=== PATIENT | female | born 1955 | race African-American/Black ===

== ENCOUNTER 2021-05-02 20:08 | Inpatient (IN) | payer OTHER ==
[2021-05-02 21:27] LABS: BASO % 0.2 % (0-2.0); EOS % 0.1 % (0-4.5); HEMATOCRIT 41.8 % (32.4-45.2); HEMOGLOBIN 13.9 GM/dL (10.7-15.3); LYMPH % 12.8 % (8-40); MCH 27.4 pg (25.7-33.7); MCHC 33.3 g/dl (32.0-36.0); MEAN CELL VOLUME 82.3 fl (80-96); MEAN PLT VOLUME 8.7 fl (7.5-11.1); MONO % 6.4 % (3.8-10.2); NEUT % 80.5 % (42.8-82.8); PLATELET COUNT 198 10^3/uL (134-434); RBC 5.08 M/mm3 (3.60-5.2); RDW 14.2 % (11.6-15.6); WHITE BLOOD COUNT 10.4 K/mm3 (4.0-10.0)
[2021-05-02 21:28] LABS: VENOUS BASE EXCESS 2.2 mmol/L (-2-2); VENOUS O2 SATURATION 45.6 % (70-80); VENOUS PCO2 50.6 mmHg (38-52); VENOUS PH 7.369 (7.310-7.410)
[2021-05-02 21:31] LABS: EPI CELLS 6 /uL (0-25.1); HYALINE CASTS 1 /uL (0-3.1); URINE APPEARANCE CLOUDY; URINE BACTERIA 6169 /uL (0-1359); URINE BILIRUBIN NEGATIVE (NEGATIVE); URINE COLOR YELLOW; URINE GLUCOSE (UA) 3+ (NEGATIVE); URINE KETONE NEGATIVE (NEGATIVE); URINE LEUK ESTERASE 1+ (NEGATIVE); URINE NITRITE POSITIVE (NEGATIVE); URINE PROTEIN TRACE (NEGATIVE); URINE UROBILINOGEN 0.2 mg/dL (0.2-1.0); URINE WBC 644 /uL (0-25.8)
[2021-05-02 21:34] LABS: INR 0.9 (0.83-1.09); PROTHROMBIN TIME (PATIENT) 11.1 SEC (9.7-13.0)
[2021-05-02 21:36] LABS: ACTIVATED PTT 30.4 SECONDS (25.2-36.5)
[2021-05-02 21:38] LABS: OPIATES, URI NEGATIVE (NEGATIVE); PHENCYCLIDINE,URINE NEGATIVE (NEGATIVE); URINE BARBITURATES NEGATIVE (NEGATIVE)
[2021-05-02 21:39] LABS: COCAINE, UR NEGATIVE (NEGATIVE); METHADONE, UR NEGATIVE (NEGATIVE); URINE BENZODIAZEPINES NEGATIVE (NEGATIVE)
[2021-05-02 21:44] LABS: CHLORIDE 104 mmol/L (98-107); SODIUM 140 mmol/L (136-145); URINE AMPHETAMINES NEGATIVE (NEGATIVE)
[2021-05-02 21:45] LABS: ALBUMIN 3.9 g/dl (3.4-5.0); CALCIUM 11.7 mg/dL (8.5-10.1)
[2021-05-02 21:47] LABS: ANION GAP 8 MMOL/L (8-16); BLOOD UREA NITROGEN 35.2 mg/dL (7-18); CO2 28 mmol/L (21-32); LIPASE 148 U/L (73-393); MAGNESIUM 1.6 mg/dL (1.8-2.4)
[2021-05-02 21:49] LABS: CREATININE 1.4 mg/dL (0.55-1.3); SGOT/AST 12 U/L (15-37); SGPT/ALT 22 U/L (13-61)
[2021-05-02 21:50] LABS: BILIRUBIN,TOTAL 0.3 mg/dL (0.2-1); TOT PROT 8.1 g/dl (6.4-8.2)
[2021-05-02 21:52] LABS: ALK PHOS 103 U/L (45-117)
[2021-05-02 21:54] LABS: URINE RBC 41.3 /uL (0-23.9)
[2021-05-02 21:55] LABS: YEAST MODERATE (NEGATIVE)
[2021-05-02] MEDS ORDERED: PIPERACILLIN/TAZOB 2.25 GM 2.25 GM in DEXTROSE 5%-WATER - 50 ML IVPB ONE (21:58)
[2021-05-02] MEDS ORDERED: MAGNESIUM SULF 50% (8.12 MEQ/2 ML-1 GM VIAL) IVPB ONE (21:59)
[2021-05-02] MEDS ORDERED: PIPERACILLIN/TAZOB 2.25 GM 2.25 GM/50 ML BAG IVPB ONE (22:08)
[2021-05-02] MEDS ORDERED: MAGNESIUM SULFATE IN WATER 2 GM/50 ML IVPB IVPB ONE (22:08)
[2021-05-02 22:10] LABS: GLUCOSE,RANDOM 422 mg/dL (74-106)
[2021-05-02] MEDS ORDERED: INSULIN (NOVOLOG) ASPART 100 UNITS/ML 10ML VIAL SQ ONE (22:26)
[2021-05-02] MEDS ORDERED: ASPIRIN 300 MG SUPP.RECT PR ONE (22:52)
[2021-05-03] MEDS ORDERED: INSULIN (NOVOLOG) ASPART 100 UNITS/ML 10ML VIAL SQ ONE (01:30)
[2021-05-03 09:46] LABS: BASO % 0.5 % (0-2.0); EOS % 0.2 % (0-4.5); HEMATOCRIT 44.4 % (32.4-45.2); HEMOGLOBIN 14.3 GM/dL (10.7-15.3); LYMPH % 13.4 % (8-40); MCHC 32.2 g/dl (32.0-36.0); MEAN CELL VOLUME 83.8 fl (80-96); MEAN PLT VOLUME 8.8 fl (7.5-11.1); MONO % 7.1 % (3.8-10.2); NEUT % 78.8 % (42.8-82.8); PLATELET COUNT 196 10^3/uL (134-434); RDW 14.4 % (11.6-15.6); WHITE BLOOD COUNT 11.7 K/mm3 (4.0-10.0)
[2021-05-03] MEDS ORDERED: levETIRAcetam 500 MG/5 ML INJECTION VIAL IVPB SCH (10:00)
[2021-05-03] MEDS ORDERED: levETIRAcetam 500 MG/5 ML INJECTION VIAL IVPB ONE ×2 (10:04→21:22)
[2021-05-03] MEDS ORDERED: CEFTRIAXONE 1 GM in DEXTROSE 5%-WATER - 50 ML IVPB SCH ×3 (10:45→11:00)
[2021-05-03] MEDS ORDERED: LORazepam 2 MG/ML SDV VIAL IVPUSH ONE (11:07)
[2021-05-03] MEDS ORDERED: hydrALAZINE HCL 20 MG/ML VIAL IVPUSH PRN (11:07)
[2021-05-03] MEDS ORDERED: CEFTRIAXONE 1 GM/50 ML BAG ONE (11:51)
[2021-05-03] MEDS ORDERED: hydrALAZINE HCL 20 MG/ML VIAL ONE ×2 (11:56→21:23)
[2021-05-03] MEDS ORDERED: LORazepam 2 MG/ML SDV VIAL ONE (14:25)
[2021-05-03] MEDS ORDERED: amLODIPine BESYLATE 10 MG TABLET (FP) PO SCH ×2 (14:30→18:00)
[2021-05-03] MEDS ORDERED: amLODIPine BESYLATE 5 MG TABLET (FP) ONE (17:55)
[2021-05-03] MEDS: amLODIPine BESYLATE 5 MG TABLET (FP) PO SCH (18:06)
[2021-05-03] MEDS ORDERED: ATORVASTATIN CA 80 MG TABLET (FP) ONE (21:23)
[2021-05-03] MEDS ORDERED: cloNIDine HCL 0.1 MG TABLET ONE (21:23)
[2021-05-03] MEDS: SODIUM CHLORIDE 0.45% 1,000 ML IV SCH (21:29)
[2021-05-03] MEDS: levETIRAcetam 500 MG/5 ML INJECTION VIAL IVPB SCH (21:29)
[2021-05-03] MEDS: cloNIDine HCL 0.1 MG TABLET PO SCH (21:29)
[2021-05-03] MEDS: hydrALAZINE HCL 20 MG/ML VIAL IVPUSH PRN (21:30)
[2021-05-03] MEDS: ATORVASTATIN CA 80 MG TABLET (FP) PO SCH (21:30)
[2021-05-03] MEDS ORDERED: cloNIDine HCL 0.1 MG TABLET PO SCH ×2 (22:00)
[2021-05-03] MEDS ORDERED: ATORVASTATIN CA 80 MG TABLET (FP) PO SCH (22:00)
[2021-05-04] MEDS ORDERED: hydrALAZINE HCL 20 MG/ML VIAL ONE (04:32)
[2021-05-04] MEDS: hydrALAZINE HCL 20 MG/ML VIAL IVPUSH PRN (04:33)
[2021-05-04] MEDS ORDERED: ASPIRIN 300 MG SUPP.RECT RC ONE (09:35)
[2021-05-04] MEDS ORDERED: cloNIDine HCL 0.1 MG TABLET ONE (09:35)
[2021-05-04] MEDS ORDERED: levETIRAcetam 500 MG/5 ML INJECTION VIAL IVPB ONE (09:35)
[2021-05-04] MEDS ORDERED: ASPIRIN 300 MG SUPP.RECT RC SCH ×2 (10:00)
[2021-05-04] MEDS ORDERED: amLODIPine BESYLATE 10 MG TABLET (FP) PO SCH (10:00)
[2021-05-04] MEDS: amLODIPine BESYLATE 5 MG TABLET (FP) PO SCH (10:59)
[2021-05-04] MEDS: CEFTRIAXONE 1 GM in DEXTROSE 5%-WATER - 50 ML IVPB SCH (10:59)
[2021-05-04] MEDS: cloNIDine HCL 0.1 MG TABLET PO SCH ×3 (10:59→22:31)
[2021-05-04] MEDS: levETIRAcetam 500 MG/5 ML INJECTION VIAL IVPB SCH ×2 (10:59→22:21)
[2021-05-04] MEDS ORDERED: amLODIPine BESYLATE 2.5 MG TABLET (FP) ONE ×2 (11:24)
[2021-05-04] MEDS ORDERED: CEFTRIAXONE 1 GM/50 ML BAG ONE (11:44)
[2021-05-04] MEDS ORDERED: ASPIRIN/DIPYRIDAMOLE 25 MG/200 MG CAPSULE ONE (15:01)
[2021-05-04] MEDS: ASPIRIN/DIPYRIDAMOLE 25 MG/200 MG CAPSULE PO SCH ×2 (15:04→22:20)
[2021-05-04] MEDS: SODIUM CHLORIDE 0.45% 1,000 ML IV SCH (21:17)
[2021-05-04] MEDS: ATORVASTATIN CA 80 MG TABLET (FP) PO SCH ×2 (22:21→22:31)
[2021-05-05 04:06] VITALS: BMI 28.3
[2021-05-05] MEDS: INSULIN SLIDING SCALE (NOVOLOG) 1 VIAL SQ SCH ×3 (06:04→19:48)
[2021-05-05] MEDS ORDERED: cefTRIAXone SODIUM 1 GM VIAL ONE (09:00)
[2021-05-05] MEDS ORDERED: PT OWN MED DRAWER 7, Y5N ONE ×4 (09:00→22:18)
[2021-05-05] MEDS ORDERED: DEXTROSE 5%-WATER - 50 ML IVPB ONE (09:01)
[2021-05-05] MEDS: CEFTRIAXONE 1 GM in DEXTROSE 5%-WATER - 50 ML IVPB SCH (09:03)
[2021-05-05] MEDS: levETIRAcetam 500 MG/5 ML INJECTION VIAL IVPB SCH (09:04)
[2021-05-05] MEDS: amLODIPine BESYLATE 5 MG TABLET (FP) PO SCH (09:04)
[2021-05-05] MEDS: cloNIDine HCL 0.1 MG TABLET PO SCH ×2 (09:05→22:16)
[2021-05-05] MEDS: ASPIRIN/DIPYRIDAMOLE 25 MG/200 MG CAPSULE PO SCH (09:08)
[2021-05-05] MEDS: metoPROLOL SUCCINATE 25 MG TAB.SR.24H (FP) PO SCH (10:14)
[2021-05-05] MEDS ORDERED: SODIUM CHLORIDE 0.45% 1,000 ML IV SCH (13:44)
[2021-05-05] MEDS ORDERED: ACETAMINOPHEN 325 MG TABLET (FP) PO PRN (13:56)
[2021-05-05] MEDS: DIPYRIDAMOLE 50 MG TABLET PO SCH ×3 (14:20→22:31)
[2021-05-05] MEDS: ASPIRIN 81 MG CHEWABLE TABLETS PO SCH (14:34)
[2021-05-05] MEDS ORDERED: ASPIRIN/DIPYRIDAMOLE 25 MG/200 MG CAPSULE PO SCH (22:00)
[2021-05-05] MEDS ORDERED: INSULIN (LEVEMIR) 100 UNITS/ML UNITS SQ SCH (22:00)
[2021-05-05] MEDS: ATORVASTATIN CA 80 MG TABLET (FP) PO SCH (22:16)
[2021-05-05] MEDS: levETIRAcetam 500 MG TABLET (FP) PO SCH (22:31)
[2021-05-06] MEDS: INSULIN SLIDING SCALE (NOVOLOG) 1 VIAL SQ SCH ×3 (06:02→16:51)
[2021-05-06] MEDS ORDERED: cefTRIAXone SODIUM 1 GM VIAL ONE (08:37)
[2021-05-06] MEDS ORDERED: DEXTROSE 5%-WATER - 50 ML IVPB ONE (08:37)
[2021-05-06] MEDS ORDERED: PT OWN MED DRAWER 7, Y5N ONE ×4 (08:37→17:10)
[2021-05-06] MEDS: metoPROLOL SUCCINATE 25 MG TAB.SR.24H (FP) PO SCH (09:02)
[2021-05-06] MEDS: DIPYRIDAMOLE 50 MG TABLET PO SCH ×4 (09:02→21:49)
[2021-05-06] MEDS: ASPIRIN 81 MG CHEWABLE TABLETS PO SCH (09:02)
[2021-05-06] MEDS: levETIRAcetam 500 MG TABLET (FP) PO SCH ×2 (09:02→21:48)
[2021-05-06] MEDS: amLODIPine BESYLATE 5 MG TABLET (FP) PO SCH (09:02)
[2021-05-06] MEDS: cloNIDine HCL 0.1 MG TABLET PO SCH ×2 (09:02→21:48)
[2021-05-06] MEDS: ENOXAPARIN NA (PORCINE) 40 MG/0.4 ML DISP.SYRIN SQ SCH (09:03)
[2021-05-06] MEDS: CEFTRIAXONE 1 GM in DEXTROSE 5%-WATER - 50 ML IVPB SCH (09:03)
[2021-05-06] MEDS ORDERED: INSULIN (LEVEMIR) 100 UNITS/ML UNITS SQ SCH (10:46)
[2021-05-06] MEDS: ATORVASTATIN CA 80 MG TABLET (FP) PO SCH (21:49)
[2021-05-07] MEDS: INSULIN SLIDING SCALE (NOVOLOG) 1 VIAL SQ SCH ×3 (06:00→17:36)
[2021-05-07 06:57] LABS: BASO % 0.4 % (0-2.0); EOS % 0.1 % (0-4.5); HEMOGLOBIN 13.8 GM/dL (10.7-15.3); LYMPH % 14.2 % (8-40); MCH 27.4 pg (25.7-33.7); MCHC 32.1 g/dl (32.0-36.0); MEAN CELL VOLUME 85.5 fl (80-96); MEAN PLT VOLUME 8.9 fl (7.5-11.1); MONO % 6.7 % (3.8-10.2); NEUT % 78.6 % (42.8-82.8); PLATELET COUNT 150 10^3/uL (134-434); RBC 5.02 M/mm3 (3.60-5.2); RDW 14.7 % (11.6-15.6); WHITE BLOOD COUNT 10.6 K/mm3 (4.0-10.0)
[2021-05-07 07:09] LABS: CALCIUM 11.9 mg/dL (8.5-10.1)
[2021-05-07 07:10] LABS: ALBUMIN 3.2 g/dl (3.4-5.0); BLOOD UREA NITROGEN 39.9 mg/dL (7-18)
[2021-05-07 07:12] LABS: BILIRUBIN,TOTAL 0.3 mg/dL (0.2-1); TOT PROT 7.1 g/dl (6.4-8.2)
[2021-05-07 07:13] LABS: CREATININE 1.1 mg/dL (0.55-1.3)
[2021-05-07] MEDS ORDERED: INSULIN (LEVEMIR) 100 UNITS/ML UNITS SQ ONE (08:04)
[2021-05-07] MEDS ORDERED: INSULIN SLIDING SCALE (NOVOLOG) 1 VIAL SQ ONE (08:05)
[2021-05-07] MEDS ORDERED: cefTRIAXone SODIUM 1 GM VIAL ONE (09:11)
[2021-05-07] MEDS ORDERED: DEXTROSE 5%-WATER - 50 ML IVPB ONE (09:11)
[2021-05-07] MEDS ORDERED: PT OWN MED DRAWER 7, Y5N ONE ×3 (09:11→17:20)
[2021-05-07] MEDS: ENOXAPARIN NA (PORCINE) 40 MG/0.4 ML DISP.SYRIN SQ SCH (09:33)
[2021-05-07] MEDS: levETIRAcetam 500 MG TABLET (FP) PO SCH ×2 (09:33→21:06)
[2021-05-07] MEDS: ASPIRIN 81 MG CHEWABLE TABLETS PO SCH (09:33)
[2021-05-07] MEDS: CEFTRIAXONE 1 GM in DEXTROSE 5%-WATER - 50 ML IVPB SCH (09:33)
[2021-05-07] MEDS: cloNIDine HCL 0.1 MG TABLET PO SCH ×2 (09:34→21:05)
[2021-05-07] MEDS: amLODIPine BESYLATE 5 MG TABLET (FP) PO SCH (09:34)
[2021-05-07] MEDS: metoPROLOL SUCCINATE 25 MG TAB.SR.24H (FP) PO SCH ×2 (09:34→10:00)
[2021-05-07] MEDS: DIPYRIDAMOLE 50 MG TABLET PO SCH ×4 (09:38→21:15)
[2021-05-07] MEDS ORDERED: PNEUMOC 13-VAL CONJ-DIP CRM/PF 0.5 ML DISP.SYRIN IM ONE (12:24)
[2021-05-07] MEDS: SODIUM CHLORIDE 0.45% 1,000 ML IV SCH (16:08)
[2021-05-07] MEDS: ATORVASTATIN CA 80 MG TABLET (FP) PO SCH (21:06)
[2021-05-07] MEDS: INSULIN (LEVEMIR) 100 UNITS/ML UNITS SQ SCH (21:15)
[2021-05-08] MEDS: INSULIN SLIDING SCALE (NOVOLOG) 1 VIAL SQ SCH ×3 (06:06→16:52)
[2021-05-08] MEDS ORDERED: INSULIN SLIDING SCALE (NOVOLOG) 1 VIAL SQ ONE (06:52)
[2021-05-08] MEDS ORDERED: INSULIN (LEVEMIR) 100 UNITS/ML UNITS SQ ONE (06:52)
[2021-05-08] MEDS: SODIUM CHLORIDE 0.45% 1,000 ML IV SCH ×3 (07:44→14:43)
[2021-05-08] MEDS ORDERED: cefTRIAXone SODIUM 1 GM VIAL ONE (08:47)
[2021-05-08] MEDS ORDERED: DEXTROSE 5%-WATER - 50 ML IVPB ONE (08:47)
[2021-05-08] MEDS: levETIRAcetam 500 MG TABLET (FP) PO SCH ×2 (09:29→22:00)
[2021-05-08] MEDS: amLODIPine BESYLATE 5 MG TABLET (FP) PO SCH (09:29)
[2021-05-08] MEDS: ASPIRIN 81 MG CHEWABLE TABLETS PO SCH (09:29)
[2021-05-08] MEDS: cloNIDine HCL 0.1 MG TABLET PO SCH ×2 (09:29→22:01)
[2021-05-08] MEDS: CEFTRIAXONE 1 GM in DEXTROSE 5%-WATER - 50 ML IVPB SCH (09:30)
[2021-05-08] MEDS: ENOXAPARIN NA (PORCINE) 40 MG/0.4 ML DISP.SYRIN SQ SCH (09:30)
[2021-05-08] MEDS: DIPYRIDAMOLE 50 MG TABLET PO SCH ×4 (09:31→22:01)
[2021-05-08 12:07] LABS: BASO % 0.5 % (0-2.0); EOS % 0.5 % (0-4.5); HEMATOCRIT 41.4 % (32.4-45.2); HEMOGLOBIN 13.4 GM/dL (10.7-15.3); LYMPH % 11.5 % (8-40); MCH 27.3 pg (25.7-33.7); MCHC 32.3 g/dl (32.0-36.0); MEAN CELL VOLUME 84.4 fl (80-96); MONO % 4.9 % (3.8-10.2); NEUT % 82.6 % (42.8-82.8); PLATELET COUNT 146 10^3/uL (134-434); RDW 14.6 % (11.6-15.6); WHITE BLOOD COUNT 10.2 K/mm3 (4.0-10.0)
[2021-05-08 12:26] LABS: CALCIUM 11.6 mg/dL (8.5-10.1)
[2021-05-08 12:27] LABS: BLOOD UREA NITROGEN 34.6 mg/dL (7-18)
[2021-05-08 12:31] LABS: BILIRUBIN,TOTAL 0.3 mg/dL (0.2-1)
[2021-05-08] MEDS ORDERED: PT OWN MED DRAWER 7, Y5N ONE ×2 (12:59→22:00)
[2021-05-08] MEDS: ATORVASTATIN CA 80 MG TABLET (FP) PO SCH (22:00)
[2021-05-08] MEDS: INSULIN (LEVEMIR) 100 UNITS/ML UNITS SQ SCH (22:27)
[2021-05-09] MEDS: SODIUM CHLORIDE 0.45% 1,000 ML IV SCH (03:16)
[2021-05-09] MEDS: INSULIN SLIDING SCALE (NOVOLOG) 1 VIAL SQ SCH ×3 (06:15→17:29)
[2021-05-09] MEDS ORDERED: PT OWN MED DRAWER 7, Y5N ONE (09:42)
[2021-05-09] MEDS ORDERED: DEXTROSE 5%-WATER - 50 ML IVPB ONE (09:42)
[2021-05-09] MEDS ORDERED: cefTRIAXone SODIUM 1 GM VIAL ONE (09:42)
[2021-05-09] MEDS: cloNIDine HCL 0.1 MG TABLET PO SCH ×2 (09:51→21:32)
[2021-05-09] MEDS: CEFTRIAXONE 1 GM in DEXTROSE 5%-WATER - 50 ML IVPB SCH (09:51)
[2021-05-09] MEDS: ENOXAPARIN NA (PORCINE) 40 MG/0.4 ML DISP.SYRIN SQ SCH (09:51)
[2021-05-09] MEDS: amLODIPine BESYLATE 5 MG TABLET (FP) PO SCH (09:51)
[2021-05-09] MEDS: levETIRAcetam 500 MG TABLET (FP) PO SCH ×2 (09:52→21:32)
[2021-05-09] MEDS: ASPIRIN 81 MG CHEWABLE TABLETS PO SCH (09:52)
[2021-05-09] MEDS: DIPYRIDAMOLE 50 MG TABLET PO SCH ×4 (09:52→21:32)
[2021-05-09] MEDS: POLYETHYLENE GLYCOL (HEALTHYLAX) 3350 17 GM PACKET PO SCH (21:32)
[2021-05-09] MEDS: ATORVASTATIN CA 80 MG TABLET (FP) PO SCH (21:32)
[2021-05-09] MEDS: INSULIN (LEVEMIR) 100 UNITS/ML UNITS SQ SCH (21:34)
[2021-05-10] MEDS: INSULIN SLIDING SCALE (NOVOLOG) 1 VIAL SQ SCH ×3 (06:11→17:13)
[2021-05-10] MEDS: levETIRAcetam 500 MG TABLET (FP) PO SCH ×2 (10:15→21:46)
[2021-05-10] MEDS: cloNIDine HCL 0.1 MG TABLET PO SCH ×2 (10:15→21:46)
[2021-05-10] MEDS: ENOXAPARIN NA (PORCINE) 40 MG/0.4 ML DISP.SYRIN SQ SCH (10:15)
[2021-05-10] MEDS: amLODIPine BESYLATE 5 MG TABLET (FP) PO SCH (10:15)
[2021-05-10] MEDS: POLYETHYLENE GLYCOL (HEALTHYLAX) 3350 17 GM PACKET PO SCH ×2 (10:15→21:46)
[2021-05-10] MEDS: ASPIRIN 81 MG CHEWABLE TABLETS PO SCH (10:15)
[2021-05-10] MEDS: DIPYRIDAMOLE 50 MG TABLET PO SCH ×4 (10:16→21:47)
[2021-05-10] MEDS ORDERED: INSULIN SLIDING SCALE (NOVOLOG) 1 VIAL SQ ONE (11:57)
[2021-05-10] MEDS: INSULIN (LEVEMIR) 100 UNITS/ML UNITS SQ SCH (21:46)
[2021-05-10] MEDS: ATORVASTATIN CA 80 MG TABLET (FP) PO SCH (21:46)
[2021-05-10 21:58] VITALS: BP 142/64; PULSE 66; TEMP 97.8
== END 2021-05-10 22:50 | DRG 45 ==
LOC: JER 20:08 → JERBED 23:27 → J4S 05-04 20:56
PROVIDERS: ADMIT Internal Medicine; ATTEND Internal Medicine
DX: I63.9 Cerebral infarction, unspecified (principal); R29.720 NIHSS score 20; I10 Essential (primary) hypertension; G93.41 Metabolic encephalopathy; F20.9 Schizophrenia, unspecified; E78.5 Hyperlipidemia, unspecified; G40.909 Epilepsy, unspecified, not intractable, without status epilepticus; I47.1 Supraventricular tachycardia; E11.65 Type 2 diabetes mellitus with hyperglycemia; G20 Parkinson's disease; N39.0 Urinary tract infection, site not specified; B96.20 Unspecified Escherichia coli [E. coli] as the cause of diseases classified elsewhere; F17.210 Nicotine dependence, cigarettes, uncomplicated; I69.920 Aphasia following unspecified cerebrovascular disease; E83.42 Hypomagnesemia; R00.1 Bradycardia, unspecified; W18.39XA Other fall on same level, initial encounter; Y93.89 Activity, other specified; Y92.098 Other place in other non-institutional residence as the place of occurrence of the external cause
CPT/HCPCS: 36415; 70450-TC; 70551-TC; 71045-TC-FY; 72125-TC; 74230-TC-FY; 80053; 80177; 80307; 81003; 82010; 82140; 82330; 82550; 82803; 82962; 83036; 83605; 83690; 83735; 83970; 84443; 84484; 85025; 85610; 85730; 86850; 86900; 86901; 87040; 87086; 87186; 90670; 92611-GN; 93005; 93010; 93306-TC; 93880-TC; 97116-GP; 97162-GP; 99285-25; C9803; J0735; U0003; U0005

== ENCOUNTER 2021-05-16 16:00 | Inpatient (IN) | payer OTHER ==
[2021-05-16] MEDS ORDERED: SODIUM CHLORIDE 0.9% 500 ML INFUS.BAG IV ONE (17:48)
[2021-05-16] MEDS ORDERED: VANCOMYCIN 1 GM in D5W (PRE-DOCKED) 1,000 MG/250 ML IVPB ONE (17:53)
[2021-05-16] MEDS ORDERED: PIPERACILLIN/TAZOB 3.375 GM 3.375 GM in DEXTROSE 5%-WATER - 50 ML IVPB ONE (17:53)
[2021-05-16] MEDS ORDERED: ACETAMINOPHEN 1000 MG/100 ML VIAL (NON FORMULARY) IVPB ONE (17:54)
[2021-05-16] MEDS ORDERED: VANCOMYCIN 1 GRAM (PRE-DOCKED) 1,000 MG/250 ML BAG IVPB ONE (18:00)
[2021-05-16] MEDS ORDERED: ACETAMINOPHEN INJECTION 100 ML IVPB ONE (18:00)
[2021-05-16 18:02] LABS: EPI CELLS 4 /uL (0-25.1); HYALINE CASTS 0 /uL (0-3.1); URINE APPEARANCE TURBID; URINE BILIRUBIN NEGATIVE (NEGATIVE); URINE COLOR YELLOW; URINE GLUCOSE (UA) 3+ (NEGATIVE); URINE KETONE TRACE (NEGATIVE); URINE LEUK ESTERASE 2+ (NEGATIVE); URINE NITRITE POSITIVE (NEGATIVE); URINE PROTEIN TRACE (NEGATIVE); URINE UROBILINOGEN 0.2 mg/dL (0.2-1.0); URINE WBC 2599 /uL (0-25.8)
[2021-05-16 18:06] LABS: VENOUS BASE EXCESS -6.9 mmol/L (-2-2); VENOUS O2 SATURATION 56.7 % (70-80); VENOUS PCO2 63.3 mmHg (38-52)
[2021-05-16 18:07] LABS: VENOUS PH 7.182 (7.310-7.410)
[2021-05-16 18:15] LABS: INR 1.14 (0.83-1.09)
[2021-05-16 18:18] LABS: ACTIVATED PTT 34.9 SECONDS (25.2-36.5)
[2021-05-16 18:26] LABS: CHLORIDE 134 mmol/L (98-107)
[2021-05-16 18:29] LABS: CALCIUM 12.6 mg/dL (8.5-10.1); CO2 23 mmol/L (21-32); MAGNESIUM 2.6 mg/dL (1.8-2.4)
[2021-05-16 18:32] LABS: SGOT/AST 21 U/L (15-37); SGPT/ALT 65 U/L (13-61)
[2021-05-16 18:34] LABS: BILIRUBIN,TOTAL 0.4 mg/dL (0.2-1); TOT PROT 8.5 g/dl (6.4-8.2)
[2021-05-16 18:38] LABS: ALBUMIN 3.6 g/dl (3.4-5.0); ALK PHOS 139 U/L (45-117); ANION GAP 10 MMOL/L (8-16); BLOOD UREA NITROGEN 93.5 mg/dL (7-18); GLUCOSE,RANDOM 817 mg/dL (74-106); LACTIC ACID 3.1 mmol/L (0.4-2.0); SODIUM 167 mmol/L (136-145)
[2021-05-16 19:17] LABS: BASO % 0.2 % (0-2.0); EOS % 0.1 % (0-4.5); HEMATOCRIT 54.3 % (32.4-45.2); HEMOGLOBIN 16.2 GM/dL (10.7-15.3); LYMPH % 8.9 % (8-40); MCH 26.9 pg (25.7-33.7); MCHC 29.8 g/dl (32.0-36.0); MEAN CELL VOLUME 90.3 fl (80-96); MEAN PLT VOLUME 10.2 fl (7.5-11.1); MONO % 4.2 % (3.8-10.2); NEUT % 86.6 % (42.8-82.8); PLATELET COUNT 109 10^3/uL (134-434); RBC 6.01 M/mm3 (3.60-5.2); RDW 16.4 % (11.6-15.6); WHITE BLOOD COUNT 16.8 K/mm3 (4.0-10.0)
[2021-05-16] MEDS ORDERED: SODIUM CHLORIDE 0.9% 1000 ML INFUS.BAG IV ONE (19:27)
[2021-05-16 20:43] LABS: ARTERIAL BLD GAS O2 SATURATION 95.3 mmHg (95-98); ARTERIAL BLOOD GAS BASE EXCESS -4.8 mmol/L (-2-2); ARTERIAL BLOOD GAS PO2 86.4 mmHg (80-100); ARTERIAL BLOOD GAS pH 7.278 (7.350-7.450)
[2021-05-16 21:03] LABS: CHLORIDE 139 mmol/L (98-107)
[2021-05-16 21:06] LABS: CO2 23 mmol/L (21-32)
[2021-05-16] MEDS ORDERED: INSULIN REGULAR HUMAN 100 UNITS/ML *VIAL SQ ONE (21:06)
[2021-05-16 21:10] LABS: CREATININE 2.8 mg/dL (0.55-1.3)
[2021-05-16 21:13] LABS: ANION GAP 7 MMOL/L (8-16); CALCIUM 10.7 mg/dL (8.5-10.1); GLUCOSE,RANDOM 877 mg/dL (74-106); SODIUM 169 mmol/L (136-145)
[2021-05-16] MEDS ORDERED: SODIUM CHLORIDE 0.45%/POT 20 MEQ/1,000 ML INFUS.BAG IV SCH (21:30)
[2021-05-16] MEDS ORDERED: INSULIN REGULAR 100 UNITS in SODIUM CHLORIDE 99 ML IVPB SCH ×2 (21:30→22:23)
[2021-05-16] MEDS ORDERED: ACETAMINOPHEN 325 MG TABLET (FP) PO PRN (21:45)
[2021-05-16 21:56] LABS: URINE BACTERIA 113.6 /uL (0-1359); URINE RBC 0 /uL (0-23.9)
[2021-05-16 21:57] LABS: YEAST MODERATE (NEGATIVE)
[2021-05-16] MEDS ORDERED: levETIRAcetam 500 MG TABLET (FP) PO SCH (22:00)
[2021-05-16 22:03] LABS: PHOSPHOROUS 4.8 mg/dL (2.5-4.9)
[2021-05-16] MEDS ORDERED: INSULIN REGULAR HUMAN 100 UNITS/ML *VIAL IVPUSH ONE (22:31)
[2021-05-16] MEDS: CHLORHEXIDINE GLUCONATE 4% CLEANSER FOR DECOLONIZATION TP SCH (22:35)
[2021-05-16] MEDS: ASPIRIN/DIPYRIDAMOLE 25 MG/200 MG CAPSULE PO SCH (22:37)
[2021-05-16] MEDS: BACITRACIN 15 GM TUBE TOPICAL OINTMENT TP SCH (23:06)
[2021-05-16] MEDS: MUPIROCIN 2% TOPICAL OINTMENT FOR DECOLONIZATION NS SCH (23:07)
[2021-05-16] MEDS: ATORVASTATIN CA 80 MG TABLET (FP) PO SCH (23:07)
[2021-05-16] MEDS: NYSTATIN 100000 UNIT/GM TOPICAL OINTMENT 15 GM TUBE TP SCH (23:07)
[2021-05-16 23:12] LABS: CHLORIDE 138 mmol/L (98-107)
[2021-05-16 23:14] LABS: CALCIUM 11.1 mg/dL (8.5-10.1); CO2 26 mmol/L (21-32)
[2021-05-16 23:15] LABS: BLOOD UREA NITROGEN 87.3 mg/dL (7-18)
[2021-05-16 23:22] LABS: ANION GAP 6 MMOL/L (8-16); GLUCOSE,RANDOM 820 mg/dL (74-106); SODIUM 170 mmol/L (136-145)
[2021-05-17] MEDS: levETIRAcetam 500 MG/5 ML INJECTION VIAL IVPB SCH ×3 (00:26→21:48)
[2021-05-17 01:46] LABS: CHLORIDE 142 mmol/L (98-107)
[2021-05-17 01:47] LABS: CALCIUM 11.1 mg/dL (8.5-10.1)
[2021-05-17 01:48] LABS: CO2 26 mmol/L (21-32)
[2021-05-17 01:51] LABS: CREATININE 2.9 mg/dL (0.55-1.3)
[2021-05-17 02:11] LABS: ANION GAP 6 MMOL/L (8-16); BLOOD UREA NITROGEN 85.1 mg/dL (7-18); GLUCOSE,RANDOM 588 mg/dL (74-106); SODIUM 174 mmol/L (136-145)
[2021-05-17] MEDS ORDERED: SODIUM CHLORIDE 0.45% 1,000 ML with POTASSIUM CHLORIDE 40 MEQ IV SCH (02:30)
[2021-05-17 04:01] LABS: CHLORIDE 141 mmol/L (98-107)
[2021-05-17 04:02] LABS: CALCIUM 11.4 mg/dL (8.5-10.1)
[2021-05-17 04:03] LABS: BLOOD UREA NITROGEN 90.9 mg/dL (7-18); CO2 26 mmol/L (21-32)
[2021-05-17 04:06] LABS: CREATININE 2.6 mg/dL (0.55-1.3)
[2021-05-17 04:08] LABS: ANION GAP 6 MMOL/L (8-16); GLUCOSE,RANDOM 489 mg/dL (74-106); SODIUM 173 mmol/L (136-145)
[2021-05-17] MEDS ORDERED: KCL 10 MEQ IVPB 10 MEQ/100 ML INFUS.BAG IVPB SCH (04:15)
[2021-05-17] MEDS: HEPARIN NA (PORCINE) 5,000 UNITS/ML 1ML VIAL SQ SCH ×3 (06:57→21:48)
[2021-05-17 07:10] LABS: BASO % 0.6 % (0-2.0); EOS % 0.9 % (0-4.5); HEMATOCRIT 44.6 % (32.4-45.2); HEMOGLOBIN 13.9 GM/dL (10.7-15.3); LYMPH % 17.7 % (8-40); MCH 27.2 pg (25.7-33.7); MCHC 31.1 g/dl (32.0-36.0); MEAN CELL VOLUME 87.5 fl (80-96); MONO % 6.6 % (3.8-10.2); NEUT % 74.2 % (42.8-82.8); PLATELET COUNT 70 10^3/uL (134-434); WHITE BLOOD COUNT 16.2 K/mm3 (4.0-10.0)
[2021-05-17 07:25] LABS: MAGNESIUM 2.1 mg/dL (1.8-2.4)
[2021-05-17 07:29] LABS: PHOSPHOROUS 2.8 mg/dL (2.5-4.9)
[2021-05-17 07:32] LABS: CHLORIDE 144 mmol/L (98-107); LACTIC ACID 3.4 mmol/L (0.4-2.0)
[2021-05-17 07:34] LABS: BLOOD UREA NITROGEN 87.5 mg/dL (7-18); CALCIUM 11.6 mg/dL (8.5-10.1); CO2 25 mmol/L (21-32); GLUCOSE,RANDOM 286 mg/dL (74-106)
[2021-05-17 07:37] LABS: SGOT/AST 22 U/L (15-37); SGPT/ALT 44 U/L (13-61)
[2021-05-17 07:38] LABS: CREATININE 2.3 mg/dL (0.55-1.3)
[2021-05-17 07:39] LABS: BILIRUBIN,TOTAL 0.2 mg/dL (0.2-1)
[2021-05-17 07:45] LABS: ALBUMIN 2.8 g/dl (3.4-5.0); ALK PHOS 100 U/L (45-117); ANION GAP 5 MMOL/L (8-16); SODIUM 174 mmol/L (136-145); TOT PROT 6.5 g/dl (6.4-8.2)
[2021-05-17] MEDS: ALBUTEROL SO4 2.5/IPRATROPIUM 0.5 INH SOL 3 ML VIAL.NEB. NEB SCH ×3 (08:25→20:23)
[2021-05-17] MEDS ORDERED: PIPERACILLIN/TAZOB 2.25 GM 2.25 GM in DEXTROSE 5%-WATER - 50 ML IVPB SCH (09:00)
[2021-05-17] MEDS ORDERED: DEXTROSE 5%-WATER - 1,000 ML IV SCH (09:15)
[2021-05-17] MEDS ORDERED: POTASSIUM CHLORIDE 40 MEQ in SODIUM CHLORIDE 0.45% 1,000 ML IV SCH (09:47)
[2021-05-17] MEDS ORDERED: VANCOMYCIN 1 GM in D5W (PRE-DOCKED) 1,000 MG/250 ML IVPB ONE (10:00)
[2021-05-17] MEDS ORDERED: INSULIN (LEVEMIR) 100 UNITS/ML UNITS SQ SCH (10:00)
[2021-05-17] MEDS ORDERED: PIPERACILLIN/TAZOBACTAM 2.25 GM VIAL IVPB ONE ×2 (10:20→16:53)
[2021-05-17] MEDS ORDERED: DEXTROSE 5%-WATER - 50 ML IVPB ONE ×2 (10:20→16:53)
[2021-05-17] MEDS ORDERED: PT OWN MED DRAWER 7, Y5N ONE (10:20)
[2021-05-17] MEDS: PIPERACILLIN/TAZOB 2.25 GM 2.25 GM in DEXTROSE 5%-WATER - 50 ML IVPB SCH ×2 (10:43→16:59)
[2021-05-17] MEDS: BACITRACIN 15 GM TUBE TOPICAL OINTMENT TP SCH ×2 (10:49→21:49)
[2021-05-17] MEDS: MUPIROCIN 2% TOPICAL OINTMENT FOR DECOLONIZATION NS SCH ×2 (10:49→21:50)
[2021-05-17] MEDS: INSULIN (LEVEMIR) 100 UNITS/ML UNITS SQ SCH ×2 (10:51→21:56)
[2021-05-17] MEDS: NYSTATIN 100000 UNIT/GM TOPICAL OINTMENT 15 GM TUBE TP SCH ×2 (11:37→21:50)
[2021-05-17] MEDS: POLYETHYLENE GLYCOL (HEALTHYLAX) 3350 17 GM PACKET PO SCH (11:37)
[2021-05-17] MEDS: ASPIRIN/DIPYRIDAMOLE 25 MG/200 MG CAPSULE PO SCH ×3 (11:37→22:11)
[2021-05-17] MEDS: INSULIN SLIDING SCALE (NOVOLOG) 1 VIAL SQ SCH ×3 (12:10→21:56)
[2021-05-17 14:34] LABS: CHLORIDE 130 mmol/L (98-107); SODIUM 159 mmol/L (136-145)
[2021-05-17 14:37] LABS: ANION GAP 4 MMOL/L (8-16); BLOOD UREA NITROGEN 66.7 mg/dL (7-18); CALCIUM 10.3 mg/dL (8.5-10.1); CO2 24 mmol/L (21-32)
[2021-05-17 14:42] LABS: GLUCOSE,RANDOM 575 mg/dL (74-106)
[2021-05-17] MEDS ORDERED: POTASSIUM CHLORIDE 20 MEQ in DEXTROSE 5%-WATER - 1,000 ML IVPB SCH (15:30)
[2021-05-17 21:06] LABS: CHLORIDE 139 mmol/L (98-107)
[2021-05-17 21:08] LABS: BLOOD UREA NITROGEN 69.6 mg/dL (7-18); CO2 25 mmol/L (21-32); GLUCOSE,RANDOM 262 mg/dL (74-106)
[2021-05-17 21:11] LABS: CREATININE 1.9 mg/dL (0.55-1.3)
[2021-05-17 21:21] LABS: ANION GAP 5 MMOL/L (8-16); SODIUM 170 mmol/L (136-145)
[2021-05-17] MEDS: ATORVASTATIN CA 80 MG TABLET (FP) PO SCH (21:49)
[2021-05-17] MEDS: CHLORHEXIDINE GLUCONATE 4% CLEANSER FOR DECOLONIZATION TP SCH (21:49)
[2021-05-18 01:05] LABS: CHLORIDE 138 mmol/L (98-107)
[2021-05-18 01:07] LABS: BLOOD UREA NITROGEN 67.7 mg/dL (7-18); CALCIUM 10.8 mg/dL (8.5-10.1); CO2 25 mmol/L (21-32); GLUCOSE,RANDOM 245 mg/dL (74-106)
[2021-05-18 01:10] LABS: CREATININE 1.5 mg/dL (0.55-1.3)
[2021-05-18 01:16] LABS: ANION GAP 3 MMOL/L (8-16); SODIUM 166 mmol/L (136-145)
[2021-05-18] MEDS ORDERED: PIPERACILLIN/TAZOBACTAM 2.25 GM VIAL IVPB ONE ×3 (01:16→18:06)
[2021-05-18] MEDS ORDERED: DEXTROSE 5%-WATER - 50 ML IVPB ONE ×3 (01:16→18:06)
[2021-05-18] MEDS: PIPERACILLIN/TAZOB 2.25 GM 2.25 GM in DEXTROSE 5%-WATER - 50 ML IVPB SCH ×3 (01:21→19:02)
[2021-05-18] MEDS: INSULIN SLIDING SCALE (NOVOLOG) 1 VIAL SQ SCH ×4 (06:45→21:22)
[2021-05-18] MEDS: HEPARIN NA (PORCINE) 5,000 UNITS/ML 1ML VIAL SQ SCH ×3 (06:46→21:09)
[2021-05-18] MEDS: INSULIN (LEVEMIR) 100 UNITS/ML UNITS SQ SCH ×2 (06:46→21:11)
[2021-05-18 06:53] LABS: HEMATOCRIT 42.1 % (32.4-45.2); HEMOGLOBIN 12.9 GM/dL (10.7-15.3); MCH 26.8 pg (25.7-33.7); MCHC 30.7 g/dl (32.0-36.0); MEAN CELL VOLUME 87.1 fl (80-96); MEAN PLT VOLUME 9.3 fl (7.5-11.1); PLATELET COUNT 53 10^3/uL (134-434); RBC 4.83 M/mm3 (3.60-5.2); RDW 15.5 % (11.6-15.6); WHITE BLOOD COUNT 10.7 K/mm3 (4.0-10.0)
[2021-05-18 07:14] LABS: CHLORIDE 135 mmol/L (98-107)
[2021-05-18] MEDS ORDERED: DEXTROSE 5%-0.45% SALINE 1,000 ML IV SCH (07:15)
[2021-05-18 07:17] LABS: BLOOD UREA NITROGEN 64.2 mg/dL (7-18); CO2 27 mmol/L (21-32); GLUCOSE,RANDOM 242 mg/dL (74-106)
[2021-05-18 07:20] LABS: CREATININE 1.5 mg/dL (0.55-1.3)
[2021-05-18 07:23] LABS: ANION GAP 2 MMOL/L (8-16); SODIUM 164 mmol/L (136-145)
[2021-05-18] MEDS: ALBUTEROL SO4 2.5/IPRATROPIUM 0.5 INH SOL 3 ML VIAL.NEB. NEB SCH ×3 (07:30→20:20)
[2021-05-18] MEDS: ASPIRIN/DIPYRIDAMOLE 25 MG/200 MG CAPSULE PO SCH ×2 (09:30→21:36)
[2021-05-18] MEDS: NYSTATIN 100000 UNIT/GM TOPICAL OINTMENT 15 GM TUBE TP SCH ×2 (09:35→23:09)
[2021-05-18] MEDS: MUPIROCIN 2% TOPICAL OINTMENT FOR DECOLONIZATION NS SCH (09:35)
[2021-05-18] MEDS: POLYETHYLENE GLYCOL (HEALTHYLAX) 3350 17 GM PACKET PO SCH (09:35)
[2021-05-18] MEDS: BACITRACIN 15 GM TUBE TOPICAL OINTMENT TP SCH ×2 (09:35→21:13)
[2021-05-18] MEDS: levETIRAcetam 500 MG/5 ML INJECTION VIAL IVPB SCH ×2 (09:35→21:11)
[2021-05-18] MEDS ORDERED: ACETAMINOPHEN 325 MG TABLET (FP) PO PRN (15:39)
[2021-05-18] MEDS ORDERED: SODIUM CHLORIDE 0.45% 1,000 ML IV SCH (17:30)
[2021-05-18] MEDS ORDERED: PT OWN MED DRAWER 7, Y5N ONE ×2 (18:24→21:25)
[2021-05-18] MEDS: AMINO ACIDS/PROTEIN HYDROLYS 30 ML LIQUID.PKT PO SCH (18:37)
[2021-05-18] MEDS: MAG HYDROX/ALH/SMC/DPHA/LIDO 240 ML MOUTHWASH MM SCH (18:40)
[2021-05-18] MEDS: ATORVASTATIN CA 80 MG TABLET (FP) PO SCH (21:11)
[2021-05-18] MEDS ORDERED: CHLORHEXIDINE GLUCONATE 4% CLEANSER FOR DECOLONIZATION TP SCH (22:00)
[2021-05-18] MEDS ORDERED: MUPIROCIN 2% TOPICAL OINTMENT FOR DECOLONIZATION NS SCH (22:00)
[2021-05-19] MEDS ORDERED: PIPERACILLIN/TAZOBACTAM 2.25 GM VIAL IVPB ONE ×3 (02:31→17:44)
[2021-05-19] MEDS ORDERED: DEXTROSE 5%-WATER - 50 ML IVPB ONE ×3 (02:31→17:44)
[2021-05-19] MEDS: PIPERACILLIN/TAZOB 2.25 GM 2.25 GM in DEXTROSE 5%-WATER - 50 ML IVPB SCH ×3 (02:40→17:46)
[2021-05-19] MEDS: MAG HYDROX/ALH/SMC/DPHA/LIDO 240 ML MOUTHWASH MM SCH ×4 (04:09→17:07)
[2021-05-19] MEDS: HEPARIN NA (PORCINE) 5,000 UNITS/ML 1ML VIAL SQ SCH ×3 (05:37→21:05)
[2021-05-19] MEDS: INSULIN (LEVEMIR) 100 UNITS/ML UNITS SQ SCH ×2 (06:04→21:13)
[2021-05-19] MEDS: INSULIN SLIDING SCALE (NOVOLOG) 1 VIAL SQ SCH ×4 (06:04→21:13)
[2021-05-19] MEDS: ALBUTEROL SO4 2.5/IPRATROPIUM 0.5 INH SOL 3 ML VIAL.NEB. NEB SCH ×3 (07:20→20:57)
[2021-05-19 10:32] LABS: EOS % 0.7 % (0-4.5); HEMATOCRIT 36.7 % (32.4-45.2); HEMOGLOBIN 11.8 GM/dL (10.7-15.3); LYMPH % 16.5 % (8-40); MCHC 32.1 g/dl (32.0-36.0); MEAN CELL VOLUME 84.2 fl (80-96); MEAN PLT VOLUME 9.4 fl (7.5-11.1); NEUT % 77.8 % (42.8-82.8); PLATELET COUNT 49 10^3/uL (134-434); RBC 4.36 M/mm3 (3.60-5.2); RDW 14.7 % (11.6-15.6); WHITE BLOOD COUNT 8.3 K/mm3 (4.0-10.0)
[2021-05-19 10:50] LABS: CHLORIDE 131 mmol/L (98-107)
[2021-05-19 10:52] LABS: ALBUMIN 2.5 g/dl (3.4-5.0); BLOOD UREA NITROGEN 40.4 mg/dL (7-18); CALCIUM 10.8 mg/dL (8.5-10.1); CO2 27 mmol/L (21-32); GLUCOSE,RANDOM 256 mg/dL (74-106)
[2021-05-19] MEDS: AMINO ACIDS/PROTEIN HYDROLYS 30 ML LIQUID.PKT PO SCH ×2 (10:52→17:07)
[2021-05-19] MEDS: ASPIRIN/DIPYRIDAMOLE 25 MG/200 MG CAPSULE PO SCH ×2 (10:53→21:04)
[2021-05-19] MEDS: POLYETHYLENE GLYCOL (HEALTHYLAX) 3350 17 GM PACKET PO SCH (10:54)
[2021-05-19] MEDS: NYSTATIN 100000 UNIT/GM TOPICAL OINTMENT 15 GM TUBE TP SCH ×2 (10:54→21:15)
[2021-05-19] MEDS: BACITRACIN 15 GM TUBE TOPICAL OINTMENT TP SCH ×2 (10:54→21:15)
[2021-05-19 10:55] LABS: CREATININE 1.3 mg/dL (0.55-1.3); SGOT/AST 33 U/L (15-37); SGPT/ALT 44 U/L (13-61)
[2021-05-19] MEDS: levETIRAcetam 500 MG/5 ML INJECTION VIAL IVPB SCH ×2 (10:55→21:14)
[2021-05-19 10:57] LABS: BILIRUBIN,TOTAL 0.5 mg/dL (0.2-1); TOT PROT 5.8 g/dl (6.4-8.2)
[2021-05-19 10:58] LABS: ALK PHOS 95 U/L (45-117)
[2021-05-19 11:10] LABS: ANION GAP 3 MMOL/L (8-16); SODIUM 162 mmol/L (136-145)
[2021-05-19] MEDS ORDERED: DEXTROSE 5%-WATER - 1,000 ML IV SCH (16:15)
[2021-05-19] MEDS ORDERED: INSULIN (NOVOLOG) ASPART 100 UNITS/ML 10ML VIAL SQ ONE (18:37)
[2021-05-19] MEDS: ATORVASTATIN CA 80 MG TABLET (FP) PO SCH (21:15)
[2021-05-20] MEDS: MAG HYDROX/ALH/SMC/DPHA/LIDO 240 ML MOUTHWASH MM SCH ×4 (00:04→17:17)
[2021-05-20] MEDS ORDERED: PIPERACILLIN/TAZOBACTAM 2.25 GM VIAL IVPB ONE ×3 (00:12→17:04)
[2021-05-20] MEDS ORDERED: DEXTROSE 5%-WATER - 50 ML IVPB ONE ×3 (00:12→17:05)
[2021-05-20] MEDS: PIPERACILLIN/TAZOB 2.25 GM 2.25 GM in DEXTROSE 5%-WATER - 50 ML IVPB SCH ×3 (01:04→17:15)
[2021-05-20] MEDS: HEPARIN NA (PORCINE) 5,000 UNITS/ML 1ML VIAL SQ SCH (05:21)
[2021-05-20] MEDS: INSULIN (LEVEMIR) 100 UNITS/ML UNITS SQ SCH ×2 (06:02→21:14)
[2021-05-20] MEDS: INSULIN SLIDING SCALE (NOVOLOG) 1 VIAL SQ SCH ×4 (06:03→21:13)
[2021-05-20] MEDS: ALBUTEROL SO4 2.5/IPRATROPIUM 0.5 INH SOL 3 ML VIAL.NEB. NEB SCH ×3 (07:30→19:35)
[2021-05-20 07:57] LABS: ALBUMIN 2.4 g/dl (3.4-5.0); BLOOD UREA NITROGEN 28.7 mg/dL (7-18); CALCIUM 10.3 mg/dL (8.5-10.1)
[2021-05-20 08:00] LABS: CREATININE 1.2 mg/dL (0.55-1.3)
[2021-05-20 08:01] LABS: BILIRUBIN,TOTAL 0.5 mg/dL (0.2-1); HEMATOCRIT 36.3 % (32.4-45.2); HEMOGLOBIN 11.6 GM/dL (10.7-15.3); MCH 27.1 pg (25.7-33.7); MEAN CELL VOLUME 84.7 fl (80-96); MEAN PLT VOLUME 10.9 fl (7.5-11.1); PLATELET COUNT 53 10^3/uL (134-434); RBC 4.29 M/mm3 (3.60-5.2); RDW 13.9 % (11.6-15.6); WHITE BLOOD COUNT 6.8 K/mm3 (4.0-10.0)
[2021-05-20 08:02] LABS: TOT PROT 5.8 g/dl (6.4-8.2)
[2021-05-20] MEDS: POLYETHYLENE GLYCOL (HEALTHYLAX) 3350 17 GM PACKET PO SCH (09:16)
[2021-05-20] MEDS: AMINO ACIDS/PROTEIN HYDROLYS 30 ML LIQUID.PKT PO SCH ×2 (09:31→17:14)
[2021-05-20] MEDS: levETIRAcetam 500 MG/5 ML INJECTION VIAL IVPB SCH ×2 (09:31→21:10)
[2021-05-20] MEDS: BACITRACIN 15 GM TUBE TOPICAL OINTMENT TP SCH ×2 (09:34→21:10)
[2021-05-20] MEDS: NYSTATIN 100000 UNIT/GM TOPICAL OINTMENT 15 GM TUBE TP SCH ×2 (09:34→21:10)
[2021-05-20] MEDS: ASPIRIN/DIPYRIDAMOLE 25 MG/200 MG CAPSULE PO SCH (10:33)
[2021-05-20] MEDS: ASPIRIN 325 MG TABLET PO SCH (12:03)
[2021-05-20] MEDS: POTASSIUM CHLORIDE 10 MEQ in SODIUM CHLORIDE 0.45% 1,000 ML IVPB SCH (12:42)
[2021-05-20] MEDS: ATORVASTATIN CA 80 MG TABLET (FP) PO SCH (21:16)
[2021-05-21] MEDS ORDERED: DEXTROSE 5%-WATER - 50 ML IVPB ONE ×3 (02:39→17:49)
[2021-05-21] MEDS ORDERED: PIPERACILLIN/TAZOBACTAM 2.25 GM VIAL IVPB ONE ×3 (02:39→17:49)
[2021-05-21] MEDS: PIPERACILLIN/TAZOB 2.25 GM 2.25 GM in DEXTROSE 5%-WATER - 50 ML IVPB SCH ×3 (03:15→18:13)
[2021-05-21] MEDS: POTASSIUM CHLORIDE 10 MEQ in SODIUM CHLORIDE 0.45% 1,000 ML IVPB SCH ×3 (04:00→18:17)
[2021-05-21] MEDS ORDERED: PT OWN MED DRAWER 7, Y5N ONE ×3 (05:05→17:49)
[2021-05-21] MEDS: INSULIN (LEVEMIR) 100 UNITS/ML UNITS SQ SCH ×2 (06:57→21:01)
[2021-05-21] MEDS: INSULIN SLIDING SCALE (NOVOLOG) 1 VIAL SQ SCH ×4 (06:58→21:02)
[2021-05-21] MEDS: MAG HYDROX/ALH/SMC/DPHA/LIDO 240 ML MOUTHWASH MM SCH ×4 (06:59→18:30)
[2021-05-21] MEDS: ALBUTEROL SO4 2.5/IPRATROPIUM 0.5 INH SOL 3 ML VIAL.NEB. NEB SCH ×3 (07:15→20:30)
[2021-05-21 09:43] LABS: BASO % 0.4 % (0-2.0); EOS % 1.2 % (0-4.5); HEMATOCRIT 32.7 % (32.4-45.2); HEMOGLOBIN 10.6 GM/dL (10.7-15.3); LYMPH % 20.6 % (8-40); MCH 27.1 pg (25.7-33.7); MCHC 32.3 g/dl (32.0-36.0); MEAN CELL VOLUME 83.8 fl (80-96); MEAN PLT VOLUME 10.2 fl (7.5-11.1); MONO % 5.2 % (3.8-10.2); NEUT % 72.6 % (42.8-82.8); PLATELET COUNT 65 10^3/uL (134-434); RDW 14.1 % (11.6-15.6); WHITE BLOOD COUNT 5.7 K/mm3 (4.0-10.0)
[2021-05-21 10:10] LABS: BLOOD UREA NITROGEN 20.2 mg/dL (7-18)
[2021-05-21 10:13] LABS: CREATININE 0.9 mg/dL (0.55-1.3)
[2021-05-21] MEDS: AMINO ACIDS/PROTEIN HYDROLYS 30 ML LIQUID.PKT PO SCH ×2 (10:25→18:13)
[2021-05-21] MEDS: levETIRAcetam 500 MG/5 ML INJECTION VIAL IVPB SCH ×2 (10:25→21:01)
[2021-05-21] MEDS: BACITRACIN 15 GM TUBE TOPICAL OINTMENT TP SCH ×2 (10:26→21:01)
[2021-05-21] MEDS: ASPIRIN 325 MG TABLET PO SCH (10:26)
[2021-05-21] MEDS: POLYETHYLENE GLYCOL (HEALTHYLAX) 3350 17 GM PACKET PO SCH (10:26)
[2021-05-21] MEDS: NYSTATIN 100000 UNIT/GM TOPICAL OINTMENT 15 GM TUBE TP SCH ×2 (10:27→21:03)
[2021-05-21 17:40] VITALS: BMI 28.1
[2021-05-21] MEDS: ATORVASTATIN CA 80 MG TABLET (FP) PO SCH (21:03)
[2021-05-22] MEDS: MAG HYDROX/ALH/SMC/DPHA/LIDO 240 ML MOUTHWASH MM SCH ×2 (00:22→06:10)
[2021-05-22] MEDS ORDERED: DEXTROSE 5%-WATER - 50 ML IVPB ONE ×2 (00:56→09:56)
[2021-05-22] MEDS ORDERED: PIPERACILLIN/TAZOBACTAM 2.25 GM VIAL IVPB ONE ×2 (00:56→09:55)
[2021-05-22] MEDS: PIPERACILLIN/TAZOB 2.25 GM 2.25 GM in DEXTROSE 5%-WATER - 50 ML IVPB SCH ×2 (01:01→09:58)
[2021-05-22] MEDS: POTASSIUM CHLORIDE 10 MEQ in SODIUM CHLORIDE 0.45% 1,000 ML IVPB SCH ×3 (05:24→14:45)
[2021-05-22] MEDS: INSULIN (LEVEMIR) 100 UNITS/ML UNITS SQ SCH ×2 (06:10→21:29)
[2021-05-22] MEDS: INSULIN SLIDING SCALE (NOVOLOG) 1 VIAL SQ SCH ×4 (06:11→21:28)
[2021-05-22] MEDS: ALBUTEROL SO4 2.5/IPRATROPIUM 0.5 INH SOL 3 ML VIAL.NEB. NEB SCH ×3 (07:05→19:54)
[2021-05-22] MEDS: AMINO ACIDS/PROTEIN HYDROLYS 30 ML LIQUID.PKT PO SCH ×2 (08:55→17:10)
[2021-05-22] MEDS: ASPIRIN 325 MG TABLET PO SCH (09:27)
[2021-05-22] MEDS: levETIRAcetam 500 MG/5 ML INJECTION VIAL IVPB SCH (09:27)
[2021-05-22] MEDS: POLYETHYLENE GLYCOL (HEALTHYLAX) 3350 17 GM PACKET PO SCH (09:56)
[2021-05-22] MEDS: NYSTATIN 100000 UNIT/GM TOPICAL OINTMENT 15 GM TUBE TP SCH ×2 (09:59→21:21)
[2021-05-22] MEDS: BACITRACIN 15 GM TUBE TOPICAL OINTMENT TP SCH ×2 (09:59→21:20)
[2021-05-22] MEDS: levETIRAcetam 500 MG/5 ML ORAL SOLUTION (UNIT-DOSE CUPS) PO SCH (21:20)
[2021-05-22] MEDS: ATORVASTATIN CA 80 MG TABLET (FP) PO SCH (21:21)
[2021-05-23] MEDS: INSULIN SLIDING SCALE (NOVOLOG) 1 VIAL SQ SCH ×4 (06:11→21:48)
[2021-05-23] MEDS: INSULIN (LEVEMIR) 100 UNITS/ML UNITS SQ SCH ×2 (06:12→21:48)
[2021-05-23] MEDS: ALBUTEROL SO4 2.5/IPRATROPIUM 0.5 INH SOL 3 ML VIAL.NEB. NEB SCH ×2 (08:50→14:30)
[2021-05-23] MEDS: AMINO ACIDS/PROTEIN HYDROLYS 30 ML LIQUID.PKT PO SCH ×2 (09:06→18:05)
[2021-05-23 09:27] LABS: BASO % 0.2 % (0-2.0); EOS % 0.7 % (0-4.5); HEMATOCRIT 32.6 % (32.4-45.2); HEMOGLOBIN 10.8 GM/dL (10.7-15.3); MCH 27.4 pg (25.7-33.7); MCHC 33.1 g/dl (32.0-36.0); MEAN PLT VOLUME 9.2 fl (7.5-11.1); MONO % 7.2 % (3.8-10.2); NEUT % 72.9 % (42.8-82.8); PLATELET COUNT 158 10^3/uL (134-434); RBC 3.93 M/mm3 (3.60-5.2); RDW 13.9 % (11.6-15.6); WHITE BLOOD COUNT 8.2 K/mm3 (4.0-10.0)
[2021-05-23 10:20] LABS: BLOOD UREA NITROGEN 17.9 mg/dL (7-18); CALCIUM 10.8 mg/dL (8.5-10.1)
[2021-05-23 10:21] LABS: ALBUMIN 2.5 g/dl (3.4-5.0)
[2021-05-23 10:29] LABS: CREATININE 0.8 mg/dL (0.55-1.3)
[2021-05-23 10:30] LABS: BILIRUBIN,TOTAL 0.3 mg/dL (0.2-1); TOT PROT 5.8 g/dl (6.4-8.2)
[2021-05-23] MEDS: levETIRAcetam 500 MG/5 ML ORAL SOLUTION (UNIT-DOSE CUPS) PO SCH ×2 (10:52→21:47)
[2021-05-23] MEDS: NYSTATIN 100000 UNIT/GM TOPICAL OINTMENT 15 GM TUBE TP SCH ×2 (10:52→21:48)
[2021-05-23] MEDS: ASPIRIN 325 MG TABLET PO SCH (10:52)
[2021-05-23] MEDS: BACITRACIN 15 GM TUBE TOPICAL OINTMENT TP SCH ×2 (10:52→21:47)
[2021-05-23] MEDS: POLYETHYLENE GLYCOL (HEALTHYLAX) 3350 17 GM PACKET PO SCH ×2 (10:52→11:51)
[2021-05-23 11:32] LABS: ANISOCYTOSIS 1+; MACROCYTOSIS 0; PLATELET ESTIMATE NORMAL
[2021-05-23] MEDS: SODIUM CHLORIDE 0.45% 1,000 ML IV SCH (18:05)
[2021-05-23] MEDS ORDERED: INSULIN (NOVOLOG) ASPART 100 UNITS/ML 10ML VIAL ONE (20:57)
[2021-05-23] MEDS: ATORVASTATIN CA 80 MG TABLET (FP) PO SCH (21:48)
[2021-05-24] MEDS: SODIUM CHLORIDE 0.45% 1,000 ML IV SCH ×2 (05:52→15:32)
[2021-05-24] MEDS: INSULIN (LEVEMIR) 100 UNITS/ML UNITS SQ SCH (06:30)
[2021-05-24] MEDS: INSULIN SLIDING SCALE (NOVOLOG) 1 VIAL SQ SCH ×3 (06:30→17:21)
[2021-05-24] MEDS: AMINO ACIDS/PROTEIN HYDROLYS 30 ML LIQUID.PKT PO SCH ×2 (09:07→18:33)
[2021-05-24] MEDS: POLYETHYLENE GLYCOL (HEALTHYLAX) 3350 17 GM PACKET PO SCH (10:05)
[2021-05-24] MEDS: BACITRACIN 15 GM TUBE TOPICAL OINTMENT TP SCH (10:05)
[2021-05-24] MEDS: levETIRAcetam 500 MG/5 ML ORAL SOLUTION (UNIT-DOSE CUPS) PO SCH (10:05)
[2021-05-24] MEDS: ASPIRIN 325 MG TABLET PO SCH (10:05)
[2021-05-24] MEDS: NYSTATIN 100000 UNIT/GM TOPICAL OINTMENT 15 GM TUBE TP SCH (10:05)
[2021-05-24] MEDS ORDERED: amLODIPine BESYLATE 10 MG TABLET (FP) PO SCH (15:30)
[2021-05-24] MEDS ORDERED: amLODIPine BESYLATE 5 MG TABLET (FP) PO SCH (15:30)
[2021-05-24 18:37] VITALS: BP 161/99; PULSE 100; TEMP 97.8
== END 2021-05-24 18:58 | DRG 420 ==
LOC: JER 16:00 → JERBED 18:55 → JICU 22:00 → J8W 05-18 15:29
PROVIDERS: ADMIT Internal Medicine Pulmonary Disease; ATTEND Internal Medicine
DX: E11.00 Type 2 diabetes mellitus with hyperosmolarity without nonketotic hyperglycemic-hyperosmolar coma (NKHHC) (principal); N39.0 Urinary tract infection, site not specified; G40.909 Epilepsy, unspecified, not intractable, without status epilepticus; F20.9 Schizophrenia, unspecified; F31.9 Bipolar disorder, unspecified; E78.00 Pure hypercholesterolemia, unspecified; I10 Essential (primary) hypertension; E11.65 Type 2 diabetes mellitus with hyperglycemia; E87.0 Hyperosmolality and hypernatremia; E87.2 Acidosis; B96.20 Unspecified Escherichia coli [E. coli] as the cause of diseases classified elsewhere; N17.9 Acute kidney failure, unspecified; D72.829 Elevated white blood cell count, unspecified; D69.6 Thrombocytopenia, unspecified; E83.52 Hypercalcemia; G20 Parkinson's disease; I24.8 Other forms of acute ischemic heart disease; G93.41 Metabolic encephalopathy
CPT/HCPCS: 36415; 36600; 70450-TC; 71045-TC-FY; 80048; 80053; 81003; 82010; 82310; 82330; 82550; 82803; 82962; 83605; 83735; 83970; 84100; 84484; 85025; 85027; 85610; 85730; 86022; 87040; 87086; 87186; 93005; 93010; 94640; 97161-GP; 99291; C9803; J0131; J1644; J3480; U0003; U0005